=== PATIENT | male | born 1950 | race Caucasian/White ===

== ENCOUNTER 2018-08-05 06:35 | Day surgery (SDC) | payer MEDICARE, OTHER ==
[2018-08-05 07:55] LABS: ADD MAN DIFF? NO
[2018-08-05 07:56] LABS: BASOPHIL # 0.1 10^3/ul (0.0-0.1); BASOPHILS % 0.7 % (0.0-2.0); EOSINOPHILS # 0.6 10^3/ul (0.0-0.5); EOSINOPHILS % 7.3 % (0.0-7.0); HEMATOCRIT 36.6 % (42.0-52.0); HEMOGLOBIN 12.4 g/dl (14.0-18.0); LYMPHOCYTES # 1.8 10^3/ul (0.8-2.9); LYMPHOCYTES % 22.8 % (15.0-51.0); MEAN CORPUSCULAR HGB CONC 33.9 g/dl (32.0-37.0); MEAN CORPUSCULAR VOLUME 94.3 fl (82.0-101.0); MEAN PLATELET VOLUME 10.5 fl (7.4-10.4); MONOCYTE # 0.6 10^3/ul (0.3-0.9); MONOCYTES % 8.2 % (0.0-11.0); NEUTROPHIL # 4.6 10^3/ul (1.6-7.5); NEUTROPHILS % 60.3 % (39.0-77.0); PLATELET COUNT 186 10^3/UL (140-415); RED BLOOD COUNT 3.88 10^6/ul (4.70-6.10); RED CELL DISTRIBUTION WIDTH 12.8 % (11.5-14.5)
[2018-08-05 07:56] LABS: WHITE BLOOD COUNT 7.7 10^3/ul (4.8-10.8)
[2018-08-05] MEDS ORDERED: SOD CHLORIDE 0.9% 1,000 ML IV (08:00)
[2018-08-05 08:15] LABS: INR 0.91; PROTIME 12.3 Sec (11.9-14.9)
[2018-08-05 08:16] LABS: PARTIAL THROMBOPLASTIN TIME 28.9 Sec (23.0-35.0)
[2018-08-05 08:19] LABS: ANION GAP 10 (8-16); BLOOD UREA NITROGEN 22 mg/dl (7-20); CALCIUM 9.2 mg/dl (8.4-10.2); CARBON DIOXIDE 25 mmol/L (21-31); CHLORIDE 111 mmol/L (97-110); CREATININE 0.97 mg/dl (0.61-1.24); GLUCOSE 104 mg/dl (70-220); POTASSIUM 4.1 mmol/L (3.5-5.1); SODIUM 142 mmol/L (135-144)
[2018-08-05] MEDS ORDERED: CEFAZOLIN 500 MG in SOD CHLORIDE 0.9% 50 ML IVPB (08:30)
[2018-08-05] MEDS ORDERED: FENTAnyl 50 MCG/ML VIAL (08:32)
[2018-08-05] MEDS ORDERED: IODIXANOL LOCM 100 ML BTL (08:32)
[2018-08-05] MEDS ORDERED: MIDAZOLAM 1 MG/ML 2 ML INJ (08:32)
[2018-08-05] MEDS ORDERED: LIDOCAINE 1% (MDV) 20 ML INJ (08:32)
[2018-08-05] MEDS ORDERED: HEPARIN 1000 UNITS/NS (A-LINE) 1,000 ML (08:32)
[2018-08-05] MEDS ORDERED: hydrALAzine 20 MG INJ IV (10:00)
[2018-08-05] MEDS ORDERED: ACETAMINOPHEN 325 MG TAB PO (10:00)
[2018-08-05] MEDS ORDERED: AL HYDROX/MG HYDROX/SIMETH 30 ML CUP PO (10:00)
[2018-08-05] MEDS ORDERED: ONDANSETRON 4 MG INJ IV (10:00)
== END 2018-08-05 16:20 | disposition home or self-care (01) ==
LOC: SDS 06:35
DX: I73.9 Peripheral vascular disease, unspecified (principal); I42.9 Cardiomyopathy, unspecified; I48.91 Unspecified atrial fibrillation; Z95.810 Presence of automatic (implantable) cardiac defibrillator; I10 Essential (primary) hypertension; F17.210 Nicotine dependence, cigarettes, uncomplicated
CPT/HCPCS: 36246; 75630; 80048; 82962; 85025; 85610; 85730